=== PATIENT | female | born 1950 | race African-American/Black ===

== ENCOUNTER 2019-03-04 06:26 | Emergency (ER) | payer OTHER ==
[2019-03-04] MEDS ORDERED: Adacel (T-DAP) 0.5 ML SYRINGE ONE (06:48)
[2019-03-04] MEDS ORDERED: cloNIDine 0.1 MG TAB ONE (07:25)
--- NOTE | 2019-03-04 08:24 | RAD ---
RIGHT THUMB THREE VIEWS: INDICATIONS: Injury. Pain. FINDINGS: There is osteoarthritis. No fracture or dislocation of the right thumb. IMPRESSION: No acute osseous abnormality. POS: C
== END 2019-03-04 08:00 | disposition home or self-care (01) ==
LOC: SCSER 06:26
DX: S60.371A Other superficial bite of right thumb, initial encounter (principal); I10 Essential (primary) hypertension; E11.9 Type 2 diabetes mellitus without complications; Z23 Encounter for immunization; W50.3XXA Accidental bite by another person, initial encounter; Y99.0 Civilian activity done for income or pay
CPT/HCPCS: 90471; 90715

== ENCOUNTER 2019-03-30 13:49 | Outpatient (CLI) | payer OTHER, SELFPAY ==
--- NOTE | 2019-04-27 09:40 | MMO ---
Bilateral MAMMO Bilat Screen [facility]. CLINICAL HISTORY: Patient is 68 years old and is seen for screening. The patient has no family history of breast cancer. The patient has no personal history of cancer. VIEWS: The views performed were: bilateral craniocaudal with tomosynthesis and bilateral mediolateral oblique with tomosynthesis. FILMS COMPARED: The present examination has been compared to prior imaging studies performed at [facility] on 04/04/2016 and 04/16/2017. MAMMOGRAM FINDINGS: There are scattered fibroglandular densities. There are no suspicious masses, suspicious calcifications, or new areas of architectural distortion. IMPRESSION: THERE IS NO MAMMOGRAPHIC EVIDENCE OF MALIGNANCY. A ROUTINE FOLLOW-UP MAMMOGRAM IN 1 YEAR IS RECOMMENDED. THE RESULTS OF THIS EXAM WERE SENT TO THE PATIENT. ACR BI-RADS Category 1 - Negative MAMMOGRAPHY NOTE: 1. A negative mammogram report should not delay a biopsy if a dominant of clinically suspicious mass is present. 2. Approximately 10% to 15% of breast cancers are not detected by mammography. 3. Adenosis and dense breasts may obscure an underlying neoplasm.
== END 2019-03-30 13:50 | disposition home or self-care (01) ==
LOC: BICMAMMO 13:49
PROVIDERS: ATTEND Family Medicine
DX: Z12.31 Encounter for screening mammogram for malignant neoplasm of breast (principal)
CPT/HCPCS: 77063; 77067